=== PATIENT | female | born 1990 | race African-American/Black ===

== ENCOUNTER 2017-10-08 13:36 | Emergency (ER) | payer OTHER, MEDICAID ==
[~2017-10-08] VITALS: Ht 177.8 cm; Wt 158.8 kg
[2017-10-08] MEDS ORDERED: METFORMIN HCL500 MG PO (13:53)
[2017-10-08] MEDS ORDERED: LOPRESSOR100 M1 PO (13:53)
[2017-10-08] MEDS ORDERED: AMOXICILLIN 50500 MG PO (13:58)
[2017-10-08 14:01] VITALS: BP 180/93
== END 2017-10-08 14:01 | disposition home or self-care (01) ==
LOC: M.ERS 13:36
DX: J32.9 Chronic sinusitis, unspecified (principal); E11.9 Type 2 diabetes mellitus without complications; I10 Essential (primary) hypertension; J45.909 Unspecified asthma, uncomplicated

== ENCOUNTER 2017-11-13 22:23 | Inpatient (IN) | payer OTHER, MEDICAID ==
[~2017-11-13] VITALS: Ht 175.3 cm; Wt 159.2 kg
[~2017-11-13 22:23] MED LIST: AMOXICILLIN 50500 MG PO; LOPRESSOR100 M1 PO; METFORMIN HCL500 MG PO
[2017-11-13 22:35] VITALS: BP 131/81
[2017-11-13 22:47] LABS: ABSOLUTE BASOPHILS 0.2 thou/uL (0.0-0.2); ABSOLUTE EOSINOPHILS 0.2 thou/uL (0.0-0.7); ABSOLUTE LYMPHOCYTES 7.2 thou/uL (0.8-5.3); ABSOLUTE MONOCYTES 0.7 thou/uL (0.0-1.2); ABSOLUTE NEUTROPHILS 8.8 thou/uL (1.6-8.1); EOSINOPHILS 1.4 %; HEMATOCRIT 41.3 % (37.0-47.0); HEMOGLOBIN 13.4 gm/dL (12.0-15.0); LYMPHOCYTES 41.9 %; MCH 24.5 pg (26.0-34.0); MCHC 32.4 g/dL (28.0-37.0); MCV 75.6 fL (80.0-100.0); MONOCYTES 4.2 %; MPV 8.4 fl. (7.2-11.1); NUCLEATED RBCS 0 /100WBC; PLATELET COUNT* 447 thou/uL (150-400); POLYS 51.5 %; RBC 5.47 mil/uL (4.20-5.00); RDW-CV 14.6 % (10.5-14.5); WBC 17.1 thou/uL (4.0-11.0)
[2017-11-13 22:55] LABS: ANION GAP 9 mmol/L (7-16); BUN 3 mg/dL (7-18); CALCIUM 9.1 mg/dL (8.5-10.1); CHLORIDE 105 mmol/L (98-107); CO2 28 mmol/L (21-32); GLUCOSE 126 mg/dL (70-99); POTASSIUM 3.8 mmol/L (3.5-5.1); PROTIME 9.5 Seconds (9.20-11.50); SODIUM 142 mmol/L (136-145)
[2017-11-13 22:57] LABS: POC CA IONIZED 4.8 mg/dL (4.5-5.3); POC HEMOGLOBIN 14.3 g/dL (12.0-17.0); POC POTASSIUM 3.9 mmol/L (3.5-4.9)
[2017-11-13 23:03] LABS: ALBUMIN 3.3 g/dL (3.4-5.0); ALKALINE PHOSPHATASE 117 U/L (46-116); SGOT 11 U/L (15-37); SGPT 18 U/L (30-65); TOTAL BILIRUBIN 0.2 mg/dL (<0.1-1.0); TOTAL PROTEIN 6.9 g/dL (6.4-8.2); TROPONIN-I LEVEL <0.06 ng/mL (<0.06)
[2017-11-14] VITALS (8 sets, daily range): BP systolic 105–151; BP diastolic 56–83
--- NOTE | 2017-11-14 02:00 | NUR ---
RECEIVED REPORT FROM CASING PULLER, OBI, AT 0006. PT ARRIVED TO UNIT AT 0025 VIA CART. PT ORIENTED TO ROOM AND CALL LIGHT. VOICED NO CONCERNS, NURSING ASSESSMENT COMPLETED AT START OF SHIFT. NIH COMPLETED, PT SCORED 1 THIS SHIFT FOR DECREASED SENSATION ON SEFT SIDE LEGS AND FACE. PT DENIES PAIN. PASSED BEDSIDE SWALLOW STUDY. PT TRACING SINUS RHYTHM ON METAL FURNITURE GLAZIER. HOURLY ROUNDING COMPLETED. CALL LIGHT WITHIN REACH.
[2017-11-14 05:15] LABS: CHOLESTEROL 165 mg/dL (<200); HDL CHOLESTEROL 31 mg/dL (>40); LDL CHOLESTEROL 103 mg/dL (<100); TC:HDL 5.3 Ratio (Not establshd); TRIGLYCERIDE 157 mg/dL (<150); VLDL 31 mg/dL (<40)
[2017-11-14 05:16] LABS: SERUM ASSESSMENT CLEAR
[2017-11-14 08:13] LABS: URINE BILIRUBIN NEGATIVE (Negative); URINE BLOOD NEGATIVE (Negative); URINE CLARITY CLEAR; URINE COLOR YELLOW; URINE GLUCOSE-RANDOM NEGATIVE (Negative); URINE KETONES NEGATIVE (Negative); URINE LEUKOCYTES NEGATIVE (Negative); URINE NITRITE NEGATIVE (Negative); URINE PROTEIN NEGATIVE (Negative); URINE UROBILINOGEN 0.2 E.U./dl (0.2-1.0)
[2017-11-14 10:31] LABS: HEMATOCRIT 38.6 % (37.0-47.0); HEMOGLOBIN 12.4 gm/dL (12.0-15.0); MCH 24.7 pg (26.0-34.0); MCHC 32.1 g/dL (28.0-37.0); MCV 76.8 fL (80.0-100.0); MPV 8.8 fl. (7.2-11.1); RBC 5.03 mil/uL (4.20-5.00); RDW-CV 14.9 % (10.5-14.5); WBC 14.5 thou/uL (4.0-11.0)
--- NOTE | 2017-11-14 11:00 | NUR ---
MET WITH PT TO DISCUSS HOME SITUATION/DC PLANNING. PT LIVES WITH 'SOMEONE' AND IS INDEPENDENT AND ACTIVE. DENIES ANY DC NEEDS. STILL AWAITING SOME TESTS. FOLLOWS WITH DR HANNON. WILL FOLLOW
--- NOTE | 2017-11-14 11:00 | EKG ---
[place] [address] ELECTROCARDIOGRAM REPORT Name: MAYRA WING Room: [address] IN [facility]#: [id number] Admission: 11/13/17 Attend Phys: Jason Sanchez Discharge: Date of : [birth year] Report #: [id number] THIS REPORT FOR: //name// [facility] ED Test Date: 2017-11-13 Test Time: 22:48:59 Pat Name: MAYRA WING Department: Room: Gender: F Chief Contract Officer: BIJAN Gould : 1990 Requested By: Casa Cardenas Order Number: [id number] MD: Guero Betancur Measurements Intervals [place] Rate: 63 P: 69 [place]: 155 QRS: 45 QRSD: 92 T: 29 QT: 402 QTc: 412 Interpretive Statements Sinus arrhythmia Probable left atrial enlargement No previous ECG available for comparison Electronically Signed On 11-14-2017 11:00:14 CDT by Guero Betancur [email or web address] <ELECTRONICALLY SIGNED> By: Guero Betancur MD, [facility] 11/14/17 1100 2248 2248 Guero Betancur MD, FACC /EPI
--- NOTE | 2017-11-14 11:01 | EKG ---
[place] [address] ELECTROCARDIOGRAM REPORT Name: MAYRA WING Room: [address] ADM IN ..#: [id number] Admission: 11/13/17 Attend Phys: Jason Sanchez Discharge: Date of : [birth year] Report #: [id number] THIS REPORT FOR: //name// [facility] ED Test Date: 2017-11-13 Test Time: 22:49:38 Pat Name: MAYRA WING Department: Room: [address] Gender: F Medical Assistant Internal Medicine: BIJAN Gould : 1990 Requested By: Casa Cardenas Order Number: [id number] Eric MD: Guero Betancur Measurements Intervals [place] Rate: 68 P: 48 [place]: 169 QRS: 36 QRSD: 86 T: 28 QT: 411 QTc: 438 Interpretive Statements Sinus arrhythmia Electronically Signed On 11-14-2017 11:00:49 CDT by Guero Betancur [email or web address] <ELECTRONICALLY SIGNED> By: Guero Betancur MD, [facility] 11/14/17 1100 2249 2249 Guero Betancur MD, FACC /EPI
--- NOTE | 2017-11-14 11:30 | NUR ---
Nutrition: Consult received for "wt changes." Wt: 350#. Per RN, pt is eating well, no reported wt changes. TG 157, alb 3.3. On metformin and insulin. CHO controleed diet. No nutrition interventions needed today. Low risk (BMI skewing risk).
--- NOTE | 2017-11-14 13:38 | NUR ---
P.T. ORDERS RECEIVED. CHART REVIEWED. NSG STAFF AND PT INDICATE PT HAS BEEN UP IN ROOM INDEP W/O DIFFICULTY. PT HAS NOT CONCERNS RE MOBILITY. NO ACUTE P.T. INTERVENTION INDICATED AT THIS TIME.
--- NOTE | 2017-11-14 17:48 | NUR ---
PT RESTING IN BED THROUGHOUT SHIFT. PT DENIES NEEDS. PT CONTINUES TO REPORT LEFT FACE NUMBNESS.
[2017-11-14 23:07] LABS: GLYCOHEMOGLOBIN (HGB A1C) 5.7 % (4.8-5.6)
[2017-11-15 03:48] VITALS: BP 109/64
--- NOTE | 2017-11-15 04:23 | NUR ---
Pt denies any complaints. VSS. NIH = 0. Denies numbness to face. States she is hopeful of being discharged tomorrow. Will continue to monitor.
[2017-11-15 07:38] VITALS: BP 127/56
[2017-11-15] MEDS ORDERED: ATORVASTATIN CA20 MG PO (10:54)
[2017-11-15] MEDS ORDERED: ASPIR 8181 MG PO (10:54)
[2017-11-15 11:16] VITALS: BP 118/62
--- NOTE | 2017-11-15 11:28 | NUR ---
PATIENT AWAITING NEUROLOGY TO DISCHARGE. DENIES NEEDS.
--- NOTE | 2017-11-15 13:15 | NUR ---
PATIENT DISCHARGED HOME. DISCHARGE NIH O. SCRIPTS GIVEN PER PRIMARY DOCTOR. DR BARRIENTOS WANTS PATIENT TO SEE OPTHAMOLOGIST LIO UPON DISCHARGE AND HAVE BUBBLE STUDY. SET THOSE UP AND EDUCATED PATIENT ON NEED. FOLLOW UP APPOINTMENTS IN PAPERWORK. DENIES FURTHER NEEDS. LEFT AMBULATORY AT 1315.
--- NOTE | 2017-11-18 21:54 | EEG ---
[address] [address] EEG STUDY REPORT Name: MAYRA WING Room: [address] IN M.R.#: [id number] Admission: 11/13/17 Attend Phys: Jason Sanchez Discharge: 11/15/17 Date of : [birth year] Report #: [id number] THIS REPORT FOR: //name// CC: Scout Murphy DATE OF SERVICE: 11/14/2017 This patient is being evaluated for an episode of numbness on the left side. EEG was done by placing the electrodes by standard 10/20 system of electrode placement. Both referential and sequential montages were used for recording. Background activity in this patient's EEG is about 9 Hz and 30 microvolt. The patient went to sleep that is associated with bilaterally symmetrical sleep spindle and vertex sharp waves. Photic stimulation was unremarkable. Throughout the record, no active epileptiform activity was noticed. IMPRESSION: This patient's EEG does not demonstrate any clear-cut epileptiform activity and was unremarkable. <ELECTRONICALLY SIGNED> By: Jimbo Soni MD 11/18/17 2154 1836 1843Pmanjeet Soni MD /nt
--- NOTE | 2017-11-18 21:54 | CON ---
[address] [address] CONSULTATION Name: MAYRA WING Room: [address] IN ..#: [id number] Admission: 11/13/17 Attend Phys: Jason Sanchez Discharge: 11/15/17 Date of : [birth year] Report #: [id number] THIS REPORT FOR: //name// CC: Scout Murphy DATE OF SERVICE: 11/14/2017 HISTORY OF PRESENT ILLNESS: This is a 27-year-old female patient who was evaluated by me for an episode of left-sided paresthesia she had yesterday. It started spontaneously without any trauma. It was followed by headache. Headache was generalized. The numbness involved the left side of the face, left upper extremity as well as left lower extremity. Symptoms have almost resolved. She still feels somewhat unusual. REVIEW OF SYSTEMS: Indicates that she does have a history of migraine. She did not describe very well how does that affect her and how common they are. She is not on any hormone therapy and in fact, she is not on any contraception. She had keloids in both ears and she has a history of diabetes and hypertension. I carried out 14-point review of system and this was her relevant 14-point review of system. PAST MEDICAL HISTORY: Negative for any stroke or TIA-like symptom. FAMILY HISTORY: Negative for early age stroke. SOCIAL HISTORY: She says she is not working outside the home and she does not smoke or drink any alcohol. PHYSICAL EXAMINATION: Indicate that the patient is alert, responsive, able to follow simple and complex command. Her speech, concentration, fund of knowledge and memory is at her baseline. Cranial nerve examination 2-12 looks unremarkable. I could not have a very good look at the patient's fundus. Her strength, sensation, reflexes and tone looks symmetrical. There is no cerebellar sign. There is no carotid bruit. There is no meningeal sign. Cardiac examination is unremarkable. No respiratory difficulty or rhonchi was noticed. LABORATORY DATA: Indicates that her white count is 17.1 for some reason. Her RBC count and platelet count is also high, but her sed rate is normal. Her sodium is normal. She had a CT angiogram in the Emergency Room and that appear unremarkable. MRI is pending. Her LDL is high. Alkaline phosphatase is high. IMPRESSION: It is possible this was an episode of hemiplegic migraine. I discussed with her that is the diagnosis of exclusion. I discussed with her that it depends somewhat up to her, how far she wants to go [place] [address] CONSULTATION Name: MAYRA WING Room: [address] IN [facility]#: [id number] Admission: 11/13/17 Attend Phys: Jason Sanchez Discharge: 11/15/17 Date of : 89 Report #: [id number] diagnosis. She understood all those. She wants to have noninvasive procedure, but not the invasive procedure. RECOMMENDATIONS: We will get an EEG done since the rest of the workup is unremarkable. I will repeat her CBC and if she is on some contraception, then she can go on aspirin daily and consider statin. All of it was discussed with the patient in detail and she wants to follow this plan. Thank you very much for this referral. <ELECTRONICALLY SIGNED> By: Jimbo Soni MD 11/18/17 2154 1018 1841Pmanjeet Soni MD /nt
--- NOTE | 2017-12-09 15:21 | CON ---
[address] [address] CONSULTATION Name: MAYRA WING Room: [address] IN ..#: [id number] Admission: 11/13/17 Attend Phys: Jason Sanchez Discharge: 11/15/17 Date of : [birth year] Report #: [id number] THIS REPORT FOR: //name// CC: Scout Murphy REASON FOR CONSULTATION: Evaluation and recommendations regarding post-acute rehabilitation in a 27-year-old female who was admitted via the Emergency Department for left-sided facial numbness, tingling and apparent weakness in the left lower extremity, which did resolve in the Emergency Department. Nevertheless, she was admitted under stroke protocol, was followed. Her previous level of function was independent with activities of daily living. Current level of function is independent with occupational therapy. Physical therapy did discharge her because she was independent. She has no needs in speech and language pathology. PAST MEDICAL HISTORY: Keloids, diabetes, hypertension, asthma. ALLERGIES: No known drug allergies. FAMILY HISTORY: Heart disease. SOCIAL HISTORY: No tobacco, alcohol or illicit drug use. REVIEW OF SYSTEMS: Negative. PHYSICAL EXAMINATION: GENERAL: Alert, oriented, in no apparent distress. VITAL SIGNS: Reviewed and are stable. HEENT: Head atraumatic, normocephalic. Pupils equal, round, reactive. ABDOMEN: Soft, nontender, nondistended. NEUROLOGIC: Cranial nerves 2-12 are grossly intact with no focal neuro deficits. ASSESSMENT: 1. Stroke protocol called due to left-sided apparent weakness, numbness and tingling. 2. Multiple medical comorbidities. PLAN: We will follow during inpatient. It sounds like she will be independent with all of her therapies and will likely not need any further rehabilitation given her independent to modified independent level of care. <ELECTRONICALLY SIGNED> By: Olivia Maria DO 12/09/17 1521 1252 1328Olivia Maria DO /nt
== END 2017-11-15 13:15 | disposition home or self-care (01) | DRG 103 ==
LOC: M.ERS 22:23 → M.TBA-ER 23:53 → M.2W 23:53
PROVIDERS: Emergency Medicine Emergency Medical Services; Internal Medicine; Psychiatry & Neurology Neuromuscular Medicine; ADMIT Internal Medicine
DX: G43.909 Migraine, unspecified, not intractable, without status migrainosus (principal); E11.9 Type 2 diabetes mellitus without complications; I10 Essential (primary) hypertension; J45.909 Unspecified asthma, uncomplicated; F17.210 Nicotine dependence, cigarettes, uncomplicated; Z82.49 Family history of ischemic heart disease and other diseases of the circulatory system

== ENCOUNTER 2017-11-18 14:09 | Emergency (ER) | payer OTHER, MEDICAID ==
[~2017-11-18] VITALS: Ht 177.8 cm; Wt 158.8 kg
[~2017-11-18 14:09] MED LIST changes: +ASPIR 8181 MG PO; +ATORVASTATIN CA20 MG PO
[2017-11-18 16:08] VITALS: BP 112/67
== END 2017-11-18 16:09 | disposition home or self-care (01) ==
LOC: M.ERS 14:09
DX: R51 Headache (principal); I10 Essential (primary) hypertension; J45.909 Unspecified asthma, uncomplicated; E11.9 Type 2 diabetes mellitus without complications

== ENCOUNTER 2017-11-27 23:25 | Emergency (ER) | payer OTHER, MEDICAID ==
[~2017-11-27] VITALS: Ht 177.8 cm; Wt 158.8 kg
[2017-11-27] MEDS ORDERED: IBUPROFEN 200200 M1 PO (23:40)
[2017-11-28 00:32] VITALS: BP 144/81
--- NOTE | 2017-11-28 11:56 | EKG ---
[place] [address] ELECTROCARDIOGRAM REPORT Name: MAYRA WING Room: [facility]#: [id number] Admission: 11/27/17 Attend Phys: Discharge: 11/28/17 Date of : [birth year] Report #: [id number] THIS REPORT FOR: //name// [facility] ED Test Date: 2017-11-27 Test Time: 23:39:35 Pat Name: MAYRA WING Department: Room: Gender: F Certified Rehabilitation Counselor: YANICK : 1990 Requested By: Leeann Deleon Order Number: [id number] Reading MD: Guero Betancur Measurements Intervals [place] Rate: 67 P: 55 [place]: 156 QRS: 44 QRSD: 89 T: 40 QT: 432 QTc: 456 Interpretive Statements Sinus rhythm Compared to ECG 11/13/2017 22:49:38 Sinus arrhythmia no longer present Electronically Signed On 11-28-2017 11:56:45 CDT by Guero Betanucr [email or web address] <ELECTRONICALLY SIGNED> By: Guero Betancur MD, [facility] 11/28/17 1156 2339 2339 Guero Betancur MD, FACC /EPI
== END 2017-11-28 00:33 | disposition home or self-care (01) ==
LOC: M.ERS 23:25
DX: R51 Headache (principal); J45.909 Unspecified asthma, uncomplicated; I10 Essential (primary) hypertension; E11.9 Type 2 diabetes mellitus without complications; E78.5 Hyperlipidemia, unspecified; Y08.89XA Assault by other specified means, initial encounter; Y93.89 Activity, other specified; Y92.89 Other specified places as the place of occurrence of the external cause; Y99.8 Other external cause status